=== PATIENT | male | born 1970 | race Caucasian/White ===

== ENCOUNTER 2023-11-24 20:43 | Inpatient (IN) | payer MEDICARE, MEDICAID ==
[~2023-11-24] VITALS: Ht 188 cm; Wt 108.0 kg
[2023-11-24 20:45] VITALS: BP_SYST 137; PULSE 88; RESP 19; TEMP 97.9; O2SAT 98
[2023-11-24] MEDS: NALOXONE HCL 2 MG/2 ML SYR IVP ONE (20:54)
[2023-11-24 21:11] LABS: BASOPHILS # (AUTO) 0.1 K/uL (0.0-0.2); BASOPHILS % (AUTO) 1.1 % (0.0-2.0); EOSINOPHILS # (AUTO) 0.2 K/uL (0.0-0.4); EOSINOPHILS % (AUTO) 1.6 % (0.0-4.0); HEMATOCRIT 42.5 % (36-54); HEMOGLOBIN 14.2 g/dL (14.0-18.0); LYMPHOCYTES # (AUTO) 2.9 K/uL (1.0-5.5); LYMPHOCYTES % (AUTO) 26.4 % (20.5-51.5); MEAN CORPUSCULAR HEMOGLOBIN 30 pg (27-31); MEAN CORPUSCULAR HGB CONC 33 % (32-36); MEAN CORPUSCULAR VOLUME 89 fL (79.0-98.0); MONOCYTES # (AUTO) 0.9 K/uL (0.0-1.0); NEUTROPHILS # (AUTO) 6.9 K/uL (1.8-7.7); NEUTROPHILS % (AUTO) 62.9 % (40.0-70.0); PLATELET COUNT (AUTO) 342 K/uL (130-430); RED CELL DISTRIBUTION WIDTH 14.9 % (9.0-15.0)
[2023-11-24 21:21] LABS: ANION GAP 10 (5-15); CALCIUM 9.3 mg/dL (8.4-11.0); CARBON DIOXIDE 27 mmol/L (23-29); CHLORIDE 108 mmol/L (98-107); CREATININE 1.92 mg/dL (0.55-1.30); GFR AFRICAN AMERICAN 47 mL/min (>90); GLUCOSE 93 mg/dL (74-106); POTASSIUM 3.8 mmol/L (3.5-5.1); SODIUM SERUM 145 mmol/L (136-145); UREA NITROGEN, BLOOD 34 mg/dL (8-21)
[2023-11-24 21:26] LABS: ALANINE AMINOTRANSFERASE 25 U/L (12-78); ALBUMIN 3.6 g/dL (3.4-4.8); ASPARTATE AMINOTRANSFERASE 15 U/L (10-37); BILIRUBIN,DIRECT 0.1 mg/dL (0.0-0.3); TOTAL BILIRUBIN 0.3 mg/dL (0.0-1.0); TOTAL PROTEIN, SERUM 7.6 g/dL (6.4-8.3)
[2023-11-24 21:30] LABS: GFR NON AFRICAN-AMERICAN 39 mL/min (>90)
[2023-11-24 21:31] LABS: ALCOHOL, BLOOD < 3 mg/dL (<10)
[2023-11-24 21:36] LABS: BARBITURATE, URINE NEGATIVE (NEG <=200); COCAINE, URINE NEGATIVE (NEG <=150); OPIATE, URINE NEGATIVE (NEG <=100); UR TRICYCLIC ANTIDEPRESSANTS NEGATIVE (NEG <=300); URINE METHADONE NEGATIVE (NEG <=200); URINE OXYCODONE SCREEN NEGATIVE (NEG <=100)
[2023-11-24 21:37] LABS: BENZODIAZEPINE, URINE POSITIVE (NEG <=150); CANNABINOID, URINE POSITIVE (NEG <=50); METHAMPHETAMINES SCREEN,URINE POSITIVE (NEG <=500); PHENCYCLIDINE SCREEN,URINE POSITIVE (NEG <=25); URINE AMPHETAMINE POSITIVE (NEG <=500)
[2023-11-24] MEDS ORDERED: PIPERACILLIN/TAZOBACTAM 4.5 GM/VIAL (ZOSYN) IV ONE (21:47)
[2023-11-24] MEDS ORDERED: ASPI-1393 PO (21:54)
[2023-11-24] MEDS ORDERED: CLOP75TA32 PO (21:54)
[2023-11-24] MEDS ORDERED: NOR10 PO (21:54)
[2023-11-24] MEDS ORDERED: LIP80 PO (21:54)
[2023-11-24] MEDS ORDERED: OLAN5TAB71 PO (21:54)
[2023-11-24] MEDS ORDERED: ALPR0.5T PO (21:54)
[2023-11-24 21:59] LABS: PROTHROMBIN TIME 10.6 SECS (9.5-12.5)
[2023-11-24] MEDS ORDERED: ACETAMINOPHEN 325 MG TABLET PO PRN (22:00)
[2023-11-24] MEDS ORDERED: ONDANSETRON HCL 4 MG/2 ML VIAL IVP PRN (22:00)
[2023-11-24] MEDS: NS 1000 ML IV.SOLN IV ONE (22:03)
[2023-11-24] MEDS: PIPERACILLIN/TAZO 4.5 GM in NS 100 ML IV ONE (22:18)
[2023-11-24 23:15] VITALS: BP_SYST 171; PULSE 86; RESP 18; TEMP 97.4; O2SAT 99
[2023-11-25] VITALS (7 sets, daily range): BP systolic 140–178; PULSE 77–101; RESP 14–20; TEMP 96.5–98; O2SAT 95–98
[2023-11-25] MEDS: NACL 0.9% 1,000 ML IV ONE (00:28)
[2023-11-25] MEDS: LORazepam 2 MG/ML VIAL IVP PRN ×2 (01:32→16:33)
[2023-11-25] MEDS: LORazepam 2 MG/ML VIAL IM ONE (02:14)
[2023-11-25] MEDS: DIPHENHYDRAMINE INJ 50 MG/ML VIAL IM ONE (02:14)
[2023-11-25] MEDS: HALOPERIDOL LACTATE 5 MG/ML VIAL IM ONE (02:15)
[2023-11-25 05:28] LABS: BASOPHILS # (AUTO) 0.1 K/uL (0.0-0.2); BASOPHILS % (AUTO) 1.2 % (0.0-2.0); EOSINOPHILS # (AUTO) 0.3 K/uL (0.0-0.4); EOSINOPHILS % (AUTO) 2.6 % (0.0-4.0); HEMATOCRIT 37.6 % (36-54); HEMOGLOBIN 12.3 g/dL (14.0-18.0); LYMPHOCYTES # (AUTO) 3.4 K/uL (1.0-5.5); LYMPHOCYTES % (AUTO) 31.6 % (20.5-51.5); MEAN CORPUSCULAR HEMOGLOBIN 29 pg (27-31); MEAN CORPUSCULAR HGB CONC 33 % (32-36); MEAN CORPUSCULAR VOLUME 89 fL (79.0-98.0); MONOCYTES # (AUTO) 0.8 K/uL (0.0-1.0); MONOCYTES % (AUTO) 7.7 % (1.7-9.3); NEUTROPHILS # (AUTO) 6.1 K/uL (1.8-7.7); NEUTROPHILS % (AUTO) 56.9 % (40.0-70.0); PLATELET COUNT (AUTO) 306 K/uL (130-430); RED BLOOD CELL COUNT(AUTO) 4.21 MIL/uL (4.2-6.2); WHITE BLOOD COUNT (AUTO) 10.6 K/uL (4.8-10.8)
[2023-11-25] MEDS: ALPRAZolam 0.25 MG TABLET PO ONE (11:15)
[2023-11-25] MEDS: amLODIPine BESYLATE 10 MG TABLET PO ONE (11:51)
[2023-11-25] MEDS: ATORVASTATIN 20 MG TABLET PO ONE (11:51)
[2023-11-25] MEDS: ASPIRIN 81 MG TABLET(ECOTRIN) PO ONE (11:51)
[2023-11-25] MEDS: CLOPIDOGREL BISULFATE 75 MG TABLET PO ONE (11:51)
[2023-11-25] MEDS ORDERED: HALOPERIDOL LACTATE 5 MG/ML VIAL IVP ONE (14:00)
[2023-11-25] MEDS ORDERED: HALOPERIDOL LACTATE 5 MG/ML VIAL ONE (14:02)
[2023-11-25] MEDS: HALOPERIDOL LACTATE 5 MG/ML VIAL IVP ONE (14:06)
[2023-11-25] MEDS: ALPRAZolam 0.25 MG TABLET PO SCH (15:00)
[2023-11-25] MEDS ORDERED: OLANZapine 5 MG TABLET PO SCH (21:00)
[2023-11-25] MEDS: HALOPERIDOL LACTATE 5 MG/ML VIAL IVP PRN (21:05)
[2023-11-25] MEDS: OLANZapine IntraMuscular 10 MG VIAL (FOR I.M. INJECTION ONLY) IM SCH (21:23)
[2023-11-25] MEDS: hydrALAZINE HCL 20 MG/ML VIAL IVP PRN (23:23)
[2023-11-26 01:15] VITALS: BP_SYST 157; PULSE 86; RESP 20; TEMP 98.5; O2SAT 96
[2023-11-26] MEDS: amLODIPine BESYLATE 10 MG TABLET PO SCH (09:00)
[2023-11-26] MEDS: ATORVASTATIN 20 MG TABLET PO SCH (09:00)
[2023-11-26] MEDS: ASPIRIN 81 MG TABLET(ECOTRIN) PO SCH (09:00)
[2023-11-26] MEDS: CLOPIDOGREL BISULFATE 75 MG TABLET PO SCH (09:00)
[2023-11-26] MEDS: HALOPERIDOL LACTATE 5 MG/ML VIAL IM PRN (09:47)
== END 2023-11-26 16:15 | disposition left against medical advice (07) | DRG 917 ==
LOC: SED 20:43 → STU 22:00
PROVIDERS: ADMIT Family Medicine; ATTEND Family Medicine
DX: T50.901A Poisoning by unspecified drugs, medicaments and biological substances, accidental (unintentional), initial encounter (principal); G92.8 Other toxic encephalopathy; N17.9 Acute kidney failure, unspecified; E87.20 Acidosis, unspecified; I10 Essential (primary) hypertension; I25.10 Atherosclerotic heart disease of native coronary artery without angina pectoris; E66.9 Obesity, unspecified; Z53.29 Procedure and treatment not carried out because of patient's decision for other reasons; E78.5 Hyperlipidemia, unspecified; Z88.8 Allergy status to other drugs, medicaments and biological substances; Z79.899 Other long term (current) drug therapy; Z79.82 Long term (current) use of aspirin; Z68.30 Body mass index [BMI] 30.0-30.9, adult; Y92.89 Other specified places as the place of occurrence of the external cause
CPT/HCPCS: 36415; 70450-TC; 71045; 80048; 80076; 80307; 83605; 84484; 85025; 85610; 85730; 87040; 87081; 93005; 96365; 99291; G0378; G0482; J0360; J1200; J1630; J2060; J2310; J2543; J3490